=== PATIENT | female | born 1940 | race American Indian/Alaskan Native ===

== ENCOUNTER 2018-06-23 11:47 | Day surgery (SDC) | payer MEDICARE ==
[2018-06-23] MEDS ORDERED: HumuLIN R IV ONE (13:00)
[2018-06-23] MEDS ORDERED: TRIPLE ANTIBIOTIC TP ONE ×2 (14:58→15:23)
[2018-06-23] MEDS ORDERED: SILVER NITRATE TP ONE ×2 (14:59→15:29)
--- NOTE | 2018-06-23 15:47 | Operative Report ---
Operative Report Operative Report: Operative Report: Date of procedure: 06/23/2018 Procedure: Gastrostomy Tube Replacement Attending physician: Mauro Byrnes MD Game Producer: Mauro Byrnes MD Indication: Patient is a 78-year-old female who presents with a history of encephalopathy/ altered mental status poor oral intake and weight loss. Patient is moderately malnourished. Patient presents with a malfunctioning disrupted deteriorated gastrostomy tube. This procedure is done to replace the malfunctioning gastrostomy tube. Consent: Informed consent was obtained after advising the patients spouse regarding nature of this procedure, its indications, potential benefits as well as possible complications including but not limited to bleeding perforation and adverse reaction to medication, infection as well as other cardiopulmonary complications. An informed consent was then obtained after due opportunity was provided for questions and answers. Monitoring: Patient was monitored continuously with pulse oximetry and electrocardiographic recordings as well as blood pressure recordings. Vital signs remained stable throughout this procedure with no untoward events. Preoperative assessment: Patient was assessed immediately prior to this procedure for capacity to tolerate monitored anesthesia care and moderate sedation as well as general anesthesia. Patient's ASA classification is 3, Mallampati class is 2, Hyomental distance is 3. Instrument: 20 [place] non-balloon gastrostomy tube kit ([facility]). Medications: Triple Antibiotic used for local application Description of procedure: Patient was placed in a supine position the gastrostomy tube site was inspected, this site was then cleaned with Betadine. Subsequently, the old gastrostomy tube was removed by traction. Subsequently the site was further vigorously cleaned with Betadine and sterilely draped. The gastrostomy tube tract was lubricated with Triple Antibiotic. Using traction, the new non-balloon gastrostomy tube was then placed. There was prompt return of gastric juice. The tube was then secured to the abdomen at 3 cm. The site was further cleaned with Betadine and then there was local application of Triple Antibiotic and finally the tube site was dressed and secured. Patient tolerated procedure well with no untoward events. Impression: Successful gastrostomy tube replacement. Plan: The tube site is currently at 3 cm. It should be cleaned daily with Betadine and peroxide. Triple Antibiotic should be applied daily to the site with dry gauze dressing a for at least 2-3 weeks. The tube site should be carefully inspected daily for any redness or discharge. The tube should be flushed with 100 mL of water every 6 hours. The tube should also be flushed additionally after administration medications or after completing a feeding session. Tube may be used for enteral feeding immediately. The tube may be used immediately for administration of medications. If the tube is accidentally dislodged, a radioisotope production operator should be notified immediately. The head of the bed should be kept at 30 always.
--- NOTE | 2018-06-23 15:48 | Discharge Summary ---
Short Stay Discharge Plan Activity: fall precautions Weight Bearing Status: Non-Weight Bearing Diet: other (Resume tube Feeding) Follow up with: KOURTNEY NARAYANAN MD [Primary Care Provider] - 7 Days
[2018-06-23 17:37] VITALS: BP 156/78
== END 2018-06-23 11:48 | disposition home or self-care (01) ==
LOC: GIO 11:47
PROVIDERS: ATTEND Internal Medicine Gastroenterology
DX: K94.23 Gastrostomy malfunction (principal); I10 Essential (primary) hypertension; K21.9 Gastro-esophageal reflux disease without esophagitis; Z86.2 Personal history of diseases of the blood and blood-forming organs and certain disorders involving the immune mechanism; Z98.890 Other specified postprocedural states; Z79.899 Other long term (current) drug therapy; Z79.01 Long term (current) use of anticoagulants; Z86.73 Personal history of transient ischemic attack (TIA), and cerebral infarction without residual deficits
CPT/HCPCS: 82962; A6250; J1815